=== PATIENT | male | born 2000 | race American Indian/Alaskan Native ===

== ENCOUNTER 2021-03-17 21:17 | Emergency (ER) | payer SELFPAY ==
[2021-03-17 22:13] VITALS: BP 83/52
--- NOTE | 2021-03-17 22:15 | Emergency Department Report ---
ED Lower Extremity HPI - General Chief Complaint: Extremity Injury, Lower Stated Complaint: FOOT PAIN Time Seen by Provider: 03/17/21 21:56 Source: patient Mode of arrival: Ambulatory Limitations: No Limitations - History of Present Illness Initial Comments: Patient is a 20-year-old male presents emergency room with points of a right ankle injury that occurred 2 days ago. He states that he was playing basketball and had a eversion injury. He states that he went to [facility] on 03/15/2021 and had x-rays performed at that time which showed moderate swelling but no acute fracture or dislocation. Patient states he left prior to then placing a splint. He currently is using crutches and has not been ambulatory per patient. He denies any numbness or weakness. No past medical history. No allergies to medications. He has not yet followed up with orthopedic doctor. - Related Data Allergies Allergy/AdvReac Type Severity Reaction Status Date / Time No Known Allergies Allergy Unverified 03/17/21 21:43 ED Review of Systems ROS: Stated complaint: FOOT PAIN Other details as noted in HPI Comment: All other systems reviewed and negative ED Past Medical Hx - Past Medical History Previous Medical History?: No - Surgical History Past Surgical History?: No - Social History Smoking Status: Never Smoker Substance Use Type: None ED Physical Exam - General Limitations: No Limitations General appearance: alert, in no apparent distress - Head Head exam: Present: atraumatic, normocephalic - Eye Eye exam: Present: normal appearance - ENT ENT exam: Present: mucous membranes moist - Extremities Exam Extremities exam: Present: other (moderate edema to the right ankle, ttp to the right medial malleolus with mild ecchymosis, FROM of the RLE, neurovascularly intact) - Neurological Exam Neurological exam: Present: alert, oriented X3 - Psychiatric Psychiatric exam: Present: normal affect, normal mood - Skin Skin exam: Present: warm, dry, intact ED Course Vital Signs 03/17/21 21:45 Temperature 98.2 F Pulse Rate 81 Respiratory 18 Rate Blood Pressure 83/52 O2 Sat by Pulse 99 Oximetry ED Lower Extremity MDM - Medical Decision Making Patient is a 20-year-old male presents emergency room with points of a right ankle injury that occurred 2 days ago. He states that he was playing basketball and had a eversion injury. He states that he went to [facility] on 03/15/2021 and had x-rays performed at that time which showed moderate swelling but no acute fracture or dislocation. Patient states he left prior to then placing a splint. He currently is using crutches and has not been ambulatory per patient. He denies any numbness or weakness. No past medical history. No allergies to medications. He has not yet followed up with orthopedic doctor. On exam:moderate edema to the right ankle, ttp to the right medial malleolus with mild ecchymosis, FROM of the RLE, neurovascularly intact. Examination appears consistent with ankle sprain. Patient had x-ray 2 days ago which showed no signs of acute fracture or dislocation. Patient will be placed in ankle stirrup splint and he already has crutches. Discussed the importance of outpatient orthopedic follow-up. Advised patient Please take medication as you were prescribed during your last emergency room visit. Please do not bear weight on the leg. Follow-up with orthopedic doctor. Return to emergency room for any new or worsening symptoms. Critical care attestation.: If time is entered above; I have spent that time in minutes in the direct care of this critically ill patient, excluding procedure time. ED Disposition Clinical Impression: Right ankle sprain Disposition: 01 HOME / SELF CARE / HOMELESS Is pt being admited?: No Does the pt Need Aspirin: No Condition: Stable Instructions: Ankle Sprain, Elastic Bandage and RICE Therapy Additional Instructions: Please take medication as you were prescribed during your last emergency room visit. Please do not bear weight on the leg. Follow-up with orthopedic doctor. Return to emergency room for any new or worsening symptoms. Referrals: CHILANGO PEREZ MD [Staff Physician] - 2-3 Days [facility] [Provider Group] - 2-3 Days Time of Disposition: 22:14 Print Language: TELUGU
== END 2021-03-17 23:15 | disposition home or self-care (01) ==
LOC: ED 21:17
DX: S93.491A Sprain of other ligament of right ankle, initial encounter (principal); Z79.899 Other long term (current) drug therapy; W21.05XA Struck by basketball, initial encounter; Y93.89 Activity, other specified; Y92.89 Other specified places as the place of occurrence of the external cause; Y99.8 Other external cause status
CPT/HCPCS: 99282